=== PATIENT | female | born 1980 | race Caucasian/White ===

== ENCOUNTER 2017-08-17 20:19 | Emergency (ER) | payer MEDICAID ==
--- NOTE | 2017-08-17 20:47 | Emergency Department Record ---
History of Present Illness - General Chief Complaint: Wound, check Stated Complaint: ABDOMINAL INCISION INFECTION Time Seen by Provider: 08/17/17 20:42 Source: Patient Mode of arrival: Ambulatory Limitations: No limitations - History of Present Illness Initial Comments: 37 yo female presents to ED for evaluation of low-grade fever this evening as she is currently being treated for a post-op incision infection with Bactrim. Patient called her PCP and was told to come to the ED for evaluation. Patient underwent tubal ligation 07/30/17. Patient denies abdominal pain, urinary symptoms, cough, sore throat, or drainage from her healing wound incision. Patient also reports that she is taking Bactrim for her wound infection currently. Patient does report mild body aches, but denies headache or stiff neck symptoms. MD Complaint: Wound re-check Onset/Timin -: Days(s) Initial Visit For: Other Returns Today for: Wound recheck Symptoms Since Prior Visit: Fever Associated Symptoms: Fever - Related Data Home Medications Medication Instructions Recorded Confirmed Last Taken Dextroamphetamine/Amphetamine 20 mg PO DAILY 08/17/17 08/17/17 08/17/17 [Adderall Xr 20 mg Capsule] Insulin Glargine,Hum.rec.anlog 25 unit SQ QAM 08/17/17 08/17/17 08/17/17 [Lantus] Pnv,Calcium 72/Iron/Folic Acid 1 tab PO DAILY 08/17/17 08/17/17 08/17/17 [Pnv Plus Multivit Tab] Sulfamethoxazole/Trimethoprim 1 tab PO BID 08/17/17 08/17/17 08/17/17 [Sulfamethoxazole-Tmp Ds Tablet] Allergies Allergy/AdvReac Type Severity Reaction Status Date / Time No Known Drug Allergies Allergy Unverified 03/05/16 15:56 Travel Screening - Travel/Exposure Within Last 30 Days Have you traveled within the last 30 days?: No - Travel Symptoms Symptom Screening: Fever (Subjective) Review of Systems Constitutional: Reports: Fever. Denies: Chills, Malaise, Night sweats Eyes: Denies: Eye discharge, Eye pain ENT: Denies: Congestion, Ear pain, Epistaxis Respiratory: Denies: Cough, Dyspnea Cardiovascular: Denies: Chest pain, Dyspnea on exertion Endocrine: Reports: Fatigue. Denies: Heat or cold intolerance Gastrointestinal: Reports: Nausea. Denies: Abdominal pain, Vomiting Genitourinary: Denies: Incontinence, Retention Musculoskeletal: Reports: Myalgia. Denies: Arthralgia, Back pain Skin: Denies: Bruising, Change in color Neurological: Denies: Abnormal gait, Confusion, Headache, Seizure Psychiatric: Denies: Anxiety Hematological/Lymphatic: Denies: Anemia, Blood Clots Past Medical History - SOCIAL HISTORY Smoking Status: Light tobacco smoker (<10/day) Alcohol Use: Occasional Drug Use: None - RESPIRATORY Hx Respiratory Disorders: No - CARDIOVASCULAR Hx Cardio Disorders: No - NEURO Hx Neuro Disorders: No - GI Hx GI Disorders: No - Hx Genitourinary Disorders: No - ENDOCRINE Hx Endocrine Disorders: Yes Hx Diabetes: Yes - MUSCULOSKELETAL Hx Musculoskeletal Disorders: No - PSYCH Hx Psych Problems: No - HEMATOLOGY/ONCOLOGY Hx Hematology/Oncology Disorders: No Family Medical History Any Significant Family History?: Yes Hx Diabetes: Grandparents Physical Exam - General General Appearance: Alert, Oriented x3, Cooperative, No acute distress Limitations: No limitations - Head Head exam: Atraumatic, Normocephalic, Normal inspection Head exam detail: negative: Abrasion, Contusion, Watson's sign, General tenderness, Hematoma, Laceration - Eye Eye exam: Normal appearance. negative: Conjunctival injection, Periorbital swelling, Periorbital tenderness, Scleral icterus - ENT Ear exam: negative: Auricular hematoma, Auricular trauma Nasal Exam: negative: Active bleeding, Discharge, Dried blood, Foreign body Mouth exam: negative: Drooling, Laceration, Tongue elevation - Neck Neck exam: Normal inspection. negative: Meningismus, Tenderness - Respiratory Respiratory exam: Normal lung sounds bilaterally. negative: Rales, Respiratory distress, Rhonchi, Stridor - Cardiovascular Cardiovascular Exam: Regular rate, Normal rhythm, Normal heart sounds - GI/Abdominal GI/Abdominal exam: Soft. negative: Rebound, Rigid, Tenderness - Rectal Rectal exam: Deferred - exam: Deferred - Extremities Extremities exam: Normal inspection. negative: Calf tenderness, Pedal edema, Tenderness - Back Back exam: Denies: CVA tenderness (R), CVA tenderness (L) - Neurological Neurological exam: Alert, Normal gait, Oriented X3 - Psychiatric Psychiatric exam: Normal affect, Normal mood - Skin Skin exam: Normal color. negative: Abrasion Type of lesion: negative: abrasion Course Vital Signs 08/17/17 20:25 Temperature 99.2 F Pulse Rate [ 94 H Pulse Ox Probe] Respiratory 20 Rate Blood Pressure 124/79 [Left Arm] Pulse Ox 99 - Reevaluation(s) Reevaluation #1: 08/17/17 20:[address] Clinton's on-call service, will obtain influenza swab as well. Patient agrees with the plan at this time. Reevaluation #2: 08/17/17 21:05 Case was discussed with Dr. Dawson, no further recommendations at this time. Influenza is negative. Patient was updated on our discussion, and the patient appears stable for discharge at this time. Disposition Disposition: Discharge Clinical Impression: Encounter for evaluation of wound Disposition: Home, Self-Care Condition: (2) Stable Instructions: Wound Healing and Your Diet (ED) Additional Instructions: Return to ED if your symptoms worsen or if you have any concerns. Follow-up with Dr. Clinton in 1-3 days as directed. Forms: Patient Portal Access Time of Disposition: 21:07 Quality - Quality Measures Quality Measures: N/A - Blood Pressure Screening Does Patient Have Any of the Following: No Blood Pressure Classification: Pre-Hypertensive BP Reading Systolic Measurement: 124 Diastolic Measurement: 79 Screening for High Blood Pressure: < Pre-Hypertensive BP, F/U Documented > [ G8950] Pre-Hypertensive Follow-up Interventions: Referral to alternative/primary care provider.
[2017-08-17 20:57] LABS: INFLUENZA A NEGATIVE (NEGATIVE); INFLUENZA B NEGATIVE (NEGATIVE)
== END 2017-08-17 21:19 | disposition home or self-care (01) ==
LOC: ER 20:19
DX: Z48.00 Encounter for change or removal of nonsurgical wound dressing (principal); R11.2 Nausea with vomiting, unspecified; R50.9 Fever, unspecified; M79.1 Myalgia; E11.9 Type 2 diabetes mellitus without complications; Z79.4 Long term (current) use of insulin; F17.210 Nicotine dependence, cigarettes, uncomplicated
CPT/HCPCS: 87400; 99283

== ENCOUNTER 2019-04-16 09:17 | Emergency (ER) | payer MEDICAID ==
--- NOTE | 2019-04-16 10:17 | Emergency Department Record ---
History of Present Illness - General Chief complaint: Extremity Problem Stated complaint: FALL/THUMB INJURY Time Seen by Provider: 04/16/19 09:44 Source: Patient Mode of Arrival: Ambulatory Limitations: No limitations - History of Present Illness Initial comments: pt tripped over her cat and injured her r thumb. she cant move the thumb without having significant pain MD Complaint: Extremity pain Onset/Timin -: Hour(s) Location: Right, Hand History of Same: No Radiation: None Severity scale (1-10): 7 Quality: Sharp Consistency: Intermittent Improves with: Immobilization Worsens with: Exertion, Palpation Associated Symptoms: Denies other symptoms - Related Data Home Medications Medication Instructions Recorded Confirmed Last Taken Albuterol Sulfate [Albuterol 8.5 gm IH ASDIR 04/16/19 04/16/19 04/16/19 Sulfate Hfa] Atorvastatin Calcium [Lipitor] 10 mg PO DAILY 04/16/19 04/16/19 04/16/19 Losartan Potassium [Cozaar] 50 mg PO DAILY 04/16/19 04/16/19 04/16/19 Montelukast Sodium [Singulair] 10 mg PO QHS 04/16/19 04/16/19 04/16/19 Sertraline HCl [Zoloft] 20 mg PO DAILY 04/16/19 04/16/19 04/16/19 Allergies Allergy/AdvReac Type Severity Reaction Status Date / Time sulfamethoxazole Allergy HIVES Verified 04/16/19 09:21 [From Bactrim] trimethoprim [From Bactrim] Allergy HIVES Verified 04/16/19 09:21 Travel Screening - Travel/Exposure Within Last 30 Days Have you traveled within the last 30 days?: No - Travel/Exposure Within Last Year Have you traveled outside the [place] in the last year?: No - Additonal Travel Details Have you been exposed to anyone with a communicable illness?: No - Travel Symptoms Symptom Screening: None Review of Systems Reviewed: No additional complaints except as noted below Constitutional: Reports: As per HPI. Denies: Chills, Fever, Malaise, Night swea ts, Weakness, Weight change Eyes: Reports: As per HPI. Denies: Eye discharge, Eye pain, Photophobia, Vision change ENT: Reports: As per HPI. Denies: Congestion, Dental pain, Ear pain, Epistaxis, Hearing loss, Throat pain Respiratory: Reports: As per HPI. Denies: Cough, Dyspnea, Hemoptysis, Stridor, Wheezes Cardiovascular: Reports: As per HPI. Denies: Arrhythmia, Chest pain, Dyspnea on exertion, Edema, Murmurs, Orthopnea, Palpitations, Paroxysmal nocturnal dyspnea, Rheumatic Fever, Syncope Endocrine: Reports: As per HPI. Denies: Fatigue, Heat or cold intolerance, P olydipsia, Polyuria Gastrointestinal: Reports: As per HPI. Denies: Abdominal pain, Constipation, Diarrhea, Hematemesis, Hematochezia, Melena, Nausea, Vomiting Genitourinary: Reports: As per HPI. Denies: Abnormal menses, Discharge, Dyspareunia, Dysuria, Frequency, Hematuria, Incontinence, Retention, Urgency Musculoskeletal: Reports: As per HPI. Denies: Arthralgia, Back pain, Gout, Joint swelling, Myalgia, Neck pain Skin: Reports: As per HPI. Denies: Bruising, Change in color, Change in hair/n ails, Lesions, Pruritus, Rash Neurological: Reports: As per HPI. Denies: Abnormal gait, Confusion, Headache, Numbness, Paresthesias, Seizure, Tingling, Tremors, Vertigo, Weakness Psychiatric: Reports: As per HPI. Denies: Anxiety, Auditory hallucinations, Depression, Homicidal thoughts, Suicidal thoughts, Visual hallucinations Hematological/Lymphatic: Reports: As per HPI. Denies: Anemia, Blood Clots, Easy bleeding, Easy bruising, Swollen glands Past Medical History - SOCIAL HISTORY Smoking Status: Light tobacco smoker (<10/day) Alcohol Use: Occasional Drug Use: None - RESPIRATORY Hx Respiratory Disorders: No - CARDIOVASCULAR Hx Cardio Disorders: No - NEURO Hx Neuro Disorders: No - GI Hx GI Disorders: No - Hx Genitourinary Disorders: No - ENDOCRINE Hx Endocrine Disorders: Yes Hx Diabetes: Yes - MUSCULOSKELETAL Hx Musculoskeletal Disorders: No - PSYCH Hx Psych Problems: No - HEMATOLOGY/ONCOLOGY Hx Hematology/Oncology Disorders: No Family Medical History Any Significant Family History?: Yes Hx Diabetes: Grandparents Physical Exam - General General Appearance: Alert, Oriented x3, Cooperative, Mild distress - Head Head exam: Normal inspection - Eye Eye exam: Normal appearance, PERRL, EOMI Pupils: Normal accommodation - ENT ENT exam: Normal exam, Mucous membranes moist, Normal external ear exam, Normal orophraynx Ear exam: Normal external inspection. negative: External canal tenderness Nasal Exam: Normal inspection. negative: Discharge, Sinus tenderness Mouth exam: Normal external inspection, Tongue normal Teeth exam: Normal inspection. negative: Dental caries Throat exam: Normal inspection. negative: Tonsillar erythema, Tonsillar exudate - Neck Neck exam: Normal inspection, Full ROM. negative: Tenderness - Respiratory Respiratory exam: Normal lung sounds bilaterally. negative: Respiratory distress - Cardiovascular Cardiovascular Exam: Regular rate, Normal rhythm, Normal heart sounds - GI/Abdominal GI/Abdominal exam: Soft, Normal bowel sounds. negative: Tenderness - Rectal Rectal exam: Deferred - exam: Deferred - Extremities Extremities exam: Normal capillary refill, Tenderness. negative: Full ROM Image of Hand: 1 - tender, lrom - Back Back exam: Reports: Normal inspection, Full ROM. Denies: Muscle spasm, Rash noted, Tenderness - Neurological Neurological exam: Alert, CN II-XII intact, Normal gait, Oriented X3 - Psychiatric Psychiatric exam: Normal affect, Normal mood - Skin Skin exam: Dry, Intact, Normal color, Warm Course Vital Signs 04/16/19 09:27 Temperature 98.3 F Pulse Rate 85 Respiratory 18 Rate Blood Pressure 141/87 Pulse Ox 98 Disposition Disposition: Discharge Clinical Impression: Skier's thumb Qualifiers: Encounter type: initial encounter Laterality: right Qualified Code(s): S63.641A - Sprain of metacarpophalangeal joint of right thumb, initial encounter Disposition: Home, Self-Care Condition: (1) Good Instructions: Skier's Thumb (ED) Additional Instructions: follow up with family doctor and if not better with orthopedic doctor. ice and elevation. motrin for pain. return sooner if worse Forms: Patient Portal Access Quality - Quality Measures Quality Measures: N/A - Blood Pressure Screening Does Patient Have Any of the Following: No Blood Pressure Classification: Pre-Hypertensive BP Reading Systolic Measurement: 141 Diastolic Measurement: 87 Screening for High Blood Pressure: < Pre-Hypertensive BP, F/U Documented > [G8950] Pre-Hypertensive Follow-up Interventions: Follow-up with rescreen every year.
--- NOTE | 2019-04-16 10:37 | RADIOLOGY REPORT ---
EXAMINATION: Right Thumb, Minimum Two Views EXAM DATE: 04/16/2019 10:05 AM TECHNIQUE: PA, lateral, and oblique views INDICATION: injury COMPARISON: None ENCOUNTER: Initial FINDINGS: No fracture or dislocation is seen. No radiopaque foreign body. No osseous lesion. IMPRESSION: No evidence of fracture. Dictated by: Maria Dolores Landis MD on 04/16/2019 10:35 AM. .
[2019-04-16] MEDS ORDERED: IBUPROFEN 600 MG TABLET PO ONE (10:45)
== END 2019-04-16 11:14 | disposition home or self-care (01) ==
LOC: ER 09:17
DX: S63.641A Sprain of metacarpophalangeal joint of right thumb, initial encounter (principal); W01.0XXA Fall on same level from slipping, tripping and stumbling without subsequent striking against object, initial encounter; F17.210 Nicotine dependence, cigarettes, uncomplicated
CPT/HCPCS: 99283